=== PATIENT | male | born 1960 | race Caucasian/White ===

== ENCOUNTER 2018-07-21 09:46 | Emergency (ER) | payer BC, OTHER ==
[~2018-07-21] VITALS: Wt 70.0 kg
[~2018-07-21 09:46] MED LIST: NO MEDS
[2018-07-21] MEDS ORDERED: SOD CHLORIDE 0.9% 1,000 ML IV STA (10:02)
[2018-07-21] MEDS ORDERED: HYDROmorphONE 1 MG/ML SYG IV STA (10:02)
[2018-07-21] MEDS ORDERED: ONDANSETRON 4 MG INJ IV STA (10:02)
--- NOTE | 2018-07-21 10:12 | ERD ---
ER Documentation Chief Complaint Chief Complaint RIGHT FLANK PAIN ONSET 0600 TODAY HPI This is a 57-year-old male with a history of kidney stones in the past complains of sharp onset right flank pain about an hour prior to arrival with nausea with no vomiting no hematuria or dysuria. Pain is sharp radiates around the right flank to the right lower quadrant. No fever ROS All systems reviewed and are negative except as per history of present illness. Medications Home Meds Discontinued Reported Medications [No Meds] No Conflict Check 05/25/09 Allergies Allergies: Coded Allergies: No Known Allergies (Verified Allergy, Mild, 07/21/18) PMhx/Soc History of Surgery: No Anesthesia Reaction: No Hx Neurological Disorder: No Hx Respiratory Disorders: No Hx Cardiac Disorders: No Hx Psychiatric Problems: No Hx Miscellaneous Medical Probl: Yes (STRAINED LOWER BACK) Hx Alcohol Use: Yes (SOCIALLY ) Hx Substance Use: No Hx Tobacco Use: No FmHx Family History: No coronary disease Physical Exam Vitals Vital Signs Date Temp Pulse Resp B/P (MAP) Pulse Ox O2 O2 Flow FiO2 Time Delivery Rate 07/21/18 97.7 51 18 152/67 99 Room Air 10:35 (95) 07/21/18 97.7 57 18 152/67 99 09:48 (95) Physical Exam Const: Well-developed, well-nourished Head: Atraumatic, normocephalic Eyes: Normal Conjunctiva, PERRLA, EOMI, normal sclera, no nystagmus ENT: Normal External Ears, Nose and Mouth, moist mucus membranes. Neck: Full range of motion. No meningismus, no lymphadenopathy. Resp: Clear to auscultation bilaterally, no wheezing, rhonchi, rales Cardio: Regular rate and rhythm, no murmurs, S1 S2 present Abd: Soft, non tender x 4, non distended. Normal bowel sounds, no guarding or rebound, no pulsitile abdominal masses or bruits Skin: No petechiae or rashes, no ecchymosis , no maculopapular rash Back: Right flank tenderness Ext: No cyanosis, or edema, FROM x 4, normal inspection, neurovascularly intact x 4 Neur: Awake and alert, STR 5/5 x 4, sensation intact x 4, no focal findings, cerebellum intact Psych: Normal Mood and Affect Result Diagram: 07/21/18 1013 07/21/18 1013 Results 24 hrs Laboratory Tests Test 07/21/18 10:13 White Blood Count 12.3 10^3/ul Red Blood Count 5.12 10^6/ul Hemoglobin 15.5 g/dl Hematocrit 45.8 % Mean Corpuscular Volume 89.5 fl Mean Corpuscular Hemoglobin 30.3 pg Mean Corpuscular Hemoglobin Concent 33.8 g/dl Red Cell Distribution Width 13.0 % Platelet Count 332 10^3/UL Mean Platelet Volume 9.1 fl Immature Granulocytes % 0.400 % Neutrophils % 76.9 % Lymphocytes % 16.7 % Monocytes % 4.8 % Eosinophils % 0.6 % Basophils % 0.6 % Nucleated Red Blood Cells % 0.0 /100WBC Immature Granulocytes # 0.050 10^3/ul Neutrophils # 9.5 10^3/ul Lymphocytes # 2.1 10^3/ul Monocytes # 0.6 10^3/ul Eosinophils # 0.1 10^3/ul Basophils # 0.1 10^3/ul Nucleated Red Blood Cells # 0.0 10^3/ul Urine Color YELLOW Urine Clarity SLIGHTLY CLOUDY Urine pH 5.0 Urine Specific [place] 1.023 Urine Ketones TRACE mg/dL Urine Nitrite NEGATIVE mg/dL Urine Bilirubin NEGATIVE mg/dL Urine Urobilinogen 1+ mg/dL Urine Leukocyte Esterase NEGATIVE Tanner/ul Urine Microscopic RBC > 182 /HPF Urine Microscopic WBC 11 /HPF Urine Mucus FEW /HPF Urine Hemoglobin 3+ mg/dL Urine Glucose NEGATIVE mg/dL Urine Total Protein NEGATIVE mg/dl Sodium Level 140 mmol/L Potassium Level 3.8 mmol/L Chloride Level 106 mmol/L Carbon Dioxide Level 24 mmol/L Anion Gap 10 Blood Urea Nitrogen 12 mg/dl Creatinine 1.20 mg/dl Est Glomerular Filtrat Rate mL/min > 60 mL/min Glucose Level 154 mg/dl Calcium Level 9.8 mg/dl Current Medications Medications Dose Sig/Von Start Time Status Last (Trade) Ordered Route PRN Stop Time Admin Dose Reason Admin Sodium 1,000 ml @ Q1H STAT 07/21/18 DC 07/21/18 Chloride 1,000 mls/hr IV 10:02 10:09 07/21/18 11:01 1 mg ONCE STAT 07/21/18 DC 07/21/18 Hydromorphone IV 10:02 10:08 HCl 07/21/18 10:03 (Dilaudid) Ondansetron 4 mg ONCE STAT 07/21/18 DC 07/21/18 HCl (Zofran IV 10:02 10:07 Inj) 07/21/18 10:03 Procedures/[place] [id number] Radiology Main Line: [phone] DIAGNOSTIC IMAGING REPORT Patient: CHRISTIANO PORTER : 1960 Age: 57 Sex: M MR #: [id number] DOS: 07/21/18 1002 Ordering MD: JEFFREY HDZ DO Location: E/R Room/Bed: PROCEDURE: CT Abdomen and Pelvis without contrast. CLINICAL INDICATION: Abdominal pain. TECHNIQUE: CT scan of the abdomen and pelvis without contrast was performed on a multidetector high-resolution CT scanner. The patient was scanned without intravenous contrast. Coronal and sagittal reformatted images were obtained from the axial source images. Images were reviewed on a high-resolution PACS workstation. One or more of the following dose reduction techniques were used: Automated exposure control, adjustment of the mA and/or kV according to patient size, use of iterative reconstruction technique. DICOM images are available. The total exam CTDI equals 10.23 mGy and the total exam DLP equals 596.69 mGy- cm. COMPARISON: None available. FINDINGS: CT ABDOMEN: Visualized lung bases: No significant infiltrate or pleural/pericardial effusion. The heart size is normal. Liver: Hypodense lesions are present in the right hepatic lobe measuring up to 9 mm in diameter, too small to characterize. The liver is normal in size and demonstrates normal attenuation. No evidence of intrahepatic ductal dilatation. Gallbladder and bile ducts: Unremarkable. Spleen: Unremarkable. Pancreas: Unremarkable. No ductal dilatation, mass, or peripancreatic stranding. Adrenal glands: Unremarkable. Kidneys: There is a 3 mm obstructive calculus in the proximal right ureter resul ting in mild right-sided hydronephrosis. Mild right perinephric and periureteral fat stranding is likely reactive in nature. There is an exophytic 3.9 cm cyst at the interpolar aspect of the right kidney. Vasculature: No abdominal aortic aneurysm. Negative IVC. Lymph nodes: No adenopathy. GI: There is no evidence of inflamed appendix. Negative terminal ileum and rectum. No evidence of obstruction. Negative sigmoid colon. Peritoneal cavity: There is a small fat-containing umbilical hernia. No free fluid or free air. CT PELVIS: : Normal appearing bladder, distal ureters and ureterovesiculal junctions. The pelvic organs are unremarkable. Peritoneal cavity: There is a small fat-containing umbilical hernia. No free fluid or free air. Lymph nodes: No adenopathy. Osseous structures: No acute osseous injury. No lytic or blastic lesions. Other: None. IMPRESSION: 1. 3 mm obstructive calculus in the proximal right ureter resulting in mild right-sided hydronephrosis likely reactive right perinephric fat stranding. No evidence of additional renal or ureteral calculi. 2. Simple appearing hypodense 3.9 cm right renal lesion, likely representing a simple cyst. 3. Indeterminate 9 mm hypodense right hepatic lobe lesion, likely representing a cyst but too small to completely characterize on this noncontrast exam. RPTAT: JJ .Leonid Pratt MD, MD Date Time Electronically viewed and signed by .Leonid Pratt MD, MD on 07/21/2018 11:40 .A/ CC: JEFFREY HDZ DO [id number] Patient's pain is better he has a 3 mm stone. Will treat with pain meds Flomax and he was given warning signs to return Departure Diagnosis: Primary Impression: Ureterolithiasis Additional Impression: Flank pain Condition: Stable JEFFREY HDZ DO July 21, 2018 10:12
[2018-07-21] MEDS ORDERED: TAMS-14 PO (11:57)
[2018-07-21] MEDS ORDERED: HYDR-3980 PO (11:57)
[2018-07-21] MEDS ORDERED: CIPR500T4 PO (11:57)
[2018-07-21 13:20] VITALS: BP 132/63; PULSE 63; RESP 18
== END 2018-07-21 13:21 | disposition home or self-care (01) ==
LOC: E/R 09:46
DX: N20.1 Calculus of ureter (principal)
CPT/HCPCS: 36415; 74176; 80048; 81001; 85025; 96374; 96375; 99285; J1170; J2405; J7030

== ENCOUNTER 2018-07-24 04:21 | Emergency (ER) | payer BC ==
[~2018-07-24] VITALS: Wt 73.6 kg
[~2018-07-24 04:21] MED LIST changes: +CIPR500T4 PO; +HYDR-3980 PO; -NO MEDS; +TAMS-14 PO
[2018-07-24] MEDS ORDERED: morphine 4 MG/ML VIAL IV STA (05:23)
[2018-07-24] MEDS ORDERED: KETOROLAC 30 MG INJ IV STA (05:23)
[2018-07-24] MEDS ORDERED: ONDANSETRON 4 MG INJ IV STA ×2 (05:26→06:54)
[2018-07-24] MEDS ORDERED: SOD CHLORIDE 0.9% 1,000 ML IV ONE (05:30)
--- NOTE | 2018-07-24 05:30 | ERD ---
ER Documentation Chief Complaint Chief Complaint SEEN HERE FOR VOMITING LAST ; MEDS NOT HELPING HPI This is a 57-year-old male who presents here in the emergency department with complaints of right-sided flank pain, nausea and vomiting. Stated that he was here last Friday and was diagnosed with right-sided kidney stones. Stated that the medication that was prescribed to him is not working. Denies headache, head injury, loss of consciousness, dizziness, neck pain, neck stiffness, throat pain, difficulty swallowing, difficulty breathing lying flat, shoulder pain, chest pain, abdominal pain, constipation, diarrhea, urinary symptoms, loss of bowel and bladder control, trauma, injury, falls, difficulty walking due to pain, numbness or tingling sensation, calf pain, recent travel, recent major surgery in the last 3 weeks, calf pain, recent long travel, recent exposure to any illness, recent antibiotic use in the last 3 months, fever, chills, seizures. Past medical history: Surgical history: Social: Denies smoking, use of alcoholic beverages, use of illegal drugs. ROS All systems reviewed and are negative except as per history of present illness. Medications Home Meds Active Scripts Ondansetron Hcl* (Zofran*) 4 Mg Tablet, 4 MG PO Q8H PRN for NAUSEA AND/OR VOMITING, #30 TAB Prov:BRIANNA NARVAEZ 07/24/18 Acetaminophen* (Tylophen*) 500 Mg Capsule, 1 CAP PO Q6H PRN for PAIN AND OR ELEVATED TEMP, #20 CAP Prov:BRIANNA NARVAEZ 07/24/18 Tramadol HCl (Tramadol HCl) 50 Mg Tablet, 50 MG PO Q4 PRN for SEVERE PAIN LEVEL 7-10, #7 TAB Prov:BRIANNA NARVAEZ 07/24/18 Hydrocodone/Acetaminophen ([place] 10-325 Tablet) 1 Each Tablet, 1 TAB PO Q6H PRN for PAIN, #16 TAB Prov:JEFFREY HDZ DO 07/21/18 Ciprofloxacin Hcl* (Ciprofloxacin Hcl*) 500 Mg Tablet, 500 MG PO BID for 7 Days, TAB Prov:ZULEYMA HDZS Benjamin LEBRON 07/21/18 Tamsulosin Hcl* (Flomax*) 0.4 Mg Cap.er.24h, 0.4 MG PO QPM, #7 CAP Prov:JEFFREY HDZ DO 07/21/18 Discontinued Reported Medications [No Meds] No Conflict Check 05/25/09 Allergies Allergies: Coded Allergies: No Known Allergies (Verified Allergy, Mild, 07/21/18) PMhx/Soc History of Surgery: Yes (Shoulder) Anesthesia Reaction: No Hx Neurological Disorder: No Hx Respiratory Disorders: No Hx Cardiac Disorders: No Hx Psychiatric Problems: No Hx Miscellaneous Medical Probl: Yes (STRAINED LOWER BACK) Hx Alcohol Use: Yes (SOCIALLY ) Hx Substance Use: No Hx Tobacco Use: No Smoking Status: Never smoker Physical Exam Vitals Vital Signs Date Temp Pulse Resp B/P (MAP) Pulse Ox O2 O2 Flow FiO2 Time Delivery Rate 07/24/18 98.7 65 16 121/75 99 Room Air 06:50 (90) 07/24/18 97.3 63 18 163/74 98 04:26 (103) Physical Exam Const: No acute distress Head: Atraumatic Eyes: Normal Conjunctiva ENT: Normal External Ears, Nose and Mouth. Neck: Full range of motion. No meningismus. Resp: Clear to auscultation bilaterally Cardio: Regular rate and rhythm, no murmurs Abd: Soft, non tender, non distended. Normal bowel sounds. Negative [place] sign. Negative [place] sign (heel jar test). Negative psoas sign. Negative Rov[place] sign. Has right-sided CVA tenderness. There is no left-sided CVA tenderness. Skin: No petechiae or rashes. No vesicular lesions. Back: No midline or flank tenderness Ext: No cyanosis, or edema Neur: Awake and alert. No neurological deficits. Psych: Normal Mood and Affect Result Diagram: 07/24/18 0530 07/24/18 0530 Results 24 hrs Laboratory Tests Test 07/24/18 05:30 White Blood Count 13.5 10^3/ul Red Blood Count 4.63 10^6/ul Hemoglobin 14.1 g/dl Hematocrit 41.7 % Mean Corpuscular Volume 90.1 fl Mean Corpuscular Hemoglobin 30.5 pg Mean Corpuscular Hemoglobin Concent 33.8 g/dl Red Cell Distribution Width 13.0 % Platelet Count 255 10^3/UL Mean Platelet Volume 9.2 fl Immature Granulocytes % 0.200 % Neutrophils % 84.6 % Lymphocytes % 6.8 % Monocytes % 7.9 % Eosinophils % 0.4 % Basophils % 0.1 % Nucleated Red Blood Cells % 0.0 /100WBC Immature Granulocytes # 0.030 10^3/ul Neutrophils # 11.4 10^3/ul Lymphocytes # 0.9 10^3/ul Monocytes # 1.1 10^3/ul Eosinophils # 0.1 10^3/ul Basophils # 0.0 10^3/ul Nucleated Red Blood Cells # 0.0 10^3/ul Urine Color YELLOW Urine Clarity CLEAR Urine pH 5.0 Urine Specific [place] 1.023 Urine Ketones NEGATIVE mg/dL Urine Nitrite NEGATIVE mg/dL Urine Bilirubin NEGATIVE mg/dL Urine Urobilinogen NEGATIVE mg/dL Urine Leukocyte Esterase NEGATIVE Tanner/ul Urine Microscopic RBC 7 /HPF Urine Microscopic WBC 1 /HPF Urine Hemoglobin 2+ mg/dL Urine Glucose NEGATIVE mg/dL Urine Total Protein NEGATIVE mg/dl Sodium Level 138 mmol/L Potassium Level 4.7 mmol/L Chloride Level 104 mmol/L Carbon Dioxide Level 27 mmol/L Anion Gap 7 Blood Urea Nitrogen 18 mg/dl Creatinine 1.78 mg/dl Est Glomerular Filtrat Rate mL/min 40 mL/min Glucose Level 119 mg/dl Calcium Level 9.1 mg/dl Total Bilirubin 2.0 mg/dl Direct Bilirubin 0.00 mg/dl Indirect Bilirubin 2.0 mg/dl Aspartate Amino Transf (AST/SGOT) 25 IU/L Alanine Aminotransferase (ALT/SGPT) 28 IU/L Alkaline Phosphatase 83 IU/L Total Protein 7.1 g/dl Albumin 3.8 g/dl Globulin 3.30 g/dl Albumin/Globulin Ratio 1.15 Amylase Level 74 U/L Lipase 40 U/L Current Medications Medications Dose Sig/Von Start Time Status Last (Trade) Ordered Route PRN Stop Time Admin Dose Reason Admin Sodium 1,000 ml @ Q1H ONCE 07/24/18 DC 07/24/18 Chloride 1,000 mls/hr IV 05:30 05:45 07/24/18 06:29 Ketorolac 30 mg ONCE STAT 07/24/18 DC Tromethamine IV 05:23 (Toradol) 07/24/18 05:26 Morphine 4 mg ONCE STAT 07/24/18 DC 07/24/18 Sulfate IV 05:23 05:44 (morphine) 07/24/18 05:26 Ondansetron 4 mg ONCE STAT 07/24/18 DC 07/24/18 HCl (Zofran IV 05:26 05:44 Inj) 07/24/18 05:27 1 mg ONCE STAT 07/24/18 DC 07/24/18 Hydromorphone IV 06:54 07:14 HCl 07/24/18 06:56 (Dilaudid) Ondansetron 4 mg ONCE STAT 07/24/18 DC 07/24/18 HCl (Zofran IV 06:54 07:14 Inj) 07/24/18 06:56 Procedures/MDM This case was discussed with my supervising physician, Dr.David Dubois who agreed with my medical decision making. Diagnostic tests: Urinalysis: Reviewed. Culture urine: Sent. KUB/x-ray of the abdomen: Blood works: Reviewed. Treatment: Saline lock. Normal saline IV bolus. Morphine IV. Zofran IV. To radol IV. Re-evaluation: Denies pain. No episode of emesis here in the emergency department. Differential diagnosis I have low suspicion for obstructing kidney stone, sepsis, septic stone, bowel obstruction, pancreatitis, cholecystitis, diverticulitis, appendicitis, ruptured appendicitis, AAA. Case was discussed with my supervising physician, Dr. Hdz. Final diagnosis: Kidney stone. Prescription: Zofran. Tylenol. Tramadol. Follow-up with PCP in the next 24-48 hours. Follow-up with urologist in the next 24 to 48 hours. Come back here in the emergency department for any new symptoms or any worsening symptoms. All questions and concerns were answered. Patient and family members verbalized understanding and agreed with plan of care. Hemodynamically stable on discharge. Departure Diagnosis: Primary Impression: Kidney stone Condition: Stable Additional Instructions: Follow-up with PCP in the next 24-48 hours. Follow-up with urologist in the next 24 to 48 hours. Come back here in the emergency department for any new symptoms or any worsening symptoms. BRIANNA NARVAEZ July 24, 2018 05:30
[2018-07-24] MEDS ORDERED: ONDA4TAB8 PO (06:32)
[2018-07-24] MEDS ORDERED: ACET500C5 PO (06:32)
[2018-07-24] MEDS ORDERED: TRAM50TA2 PO (06:32)
[2018-07-24 06:50] VITALS: BP 121/75; PULSE 65; RESP 16
[2018-07-24] MEDS ORDERED: HYDROmorphONE 2 MG/ML SYG IV STA (06:54)
== END 2018-07-24 07:35 | disposition home or self-care (01) ==
LOC: FTE 04:21
DX: N20.0 Calculus of kidney (principal)
CPT/HCPCS: 74018; 80053; 81001; 82150; 83690; 85025; 87086; J1170; J2270; J2405; J7030; 96361; 96374; 96375; 96376

== ENCOUNTER 2018-07-26 14:26 | Emergency (ER) | payer BC ==
[~2018-07-26] VITALS: Wt 73.4 kg
[~2018-07-26 14:26] MED LIST changes: +ACET500C5 PO; +ONDA4TAB8 PO; +TRAM50TA2 PO
[2018-07-26] MEDS ORDERED: ONDANSETRON 4 MG INJ IV STA (14:56)
[2018-07-26] MEDS ORDERED: KETOROLAC 15 MG INJ IV STA (14:56)
[2018-07-26] MEDS ORDERED: SOD CHLORIDE 0.9% 1,000 ML IV STA (14:56)
[2018-07-26] MEDS ORDERED: morphine 4 MG/ML VIAL IV STA (14:56)
--- NOTE | 2018-07-26 15:39 | ERD ---
ER Documentation Chief Complaint Chief Complaint HERE 05.17 W/ SAME RIGHT FLANK PAIN, HX KIDNEY STONE HPI This is a 58-year-old gentleman who presents to the emergency room with persistent right flank pain. The patient is now here for the third time related to the symptoms. On the first visit he was diagnosed with a proximal 3 mm right ureteral stone. Patient was discharged with pain medication. He was seen here 2 days ago for similar symptoms treated with pain control medication. He states that the pain is still persistent. He is taking pain medication at home. He denies any fevers or chills, no dysuria urgency or frequency. He has not followed up with urology as of yet. Pain noted to be 7 out of 10 currently. ROS All systems reviewed and are negative except as per history of present illness. Medications Home Meds Active Scripts Naloxone HCl nasal spray (Narcan 4 mg/0.1 mL nasal) 4 Mg [place], 4 MG NS .Q2-3MIN for OPIOID OVERDOSE, #2 SPRAY 0 Refills [place] 0.1 mL into one nostril. Repeat with second device into other nostril after 2-3 minutes if no or minimal response Prov:LUIS MUELLER MD 07/26/18 Tamsulosin Hcl* (Flomax*) 0.4 Mg Cap.er.24h, 0.4 MG PO QPM, #5 CAP Prov:LUIS MUELLER MD 07/26/18 Ibuprofen* (Motrin*) 800 Mg Tab, 800 MG PO Q6H PRN for PAIN AND OR ELEVATED TEMP, #30 TAB Prov:LUIS MUELLER MD 07/26/18 Ondansetron (Ondansetron Odt) 4 Mg Tab.rapdis, 4 MG PO Q6H PRN for NAUSEA AND/OR VOMITING, #20 TAB Prov:LUIS MUELLER MD 07/26/18 Hydrocodone/Acetaminophen ([place] 10-325 Tablet) 1 Each Tablet, 1 TAB PO Q6H PRN for PAIN, #10 TAB Prov:LUIS MUELLER MD 07/26/18 Ondansetron Hcl* (Zofran*) 4 Mg Tablet, 4 MG PO Q8H PRN for NAUSEA AND/OR VOMITING, #30 TAB Prov:BRIANNA NARVAEZ 07/24/18 Acetaminophen* (Tylophen*) 500 Mg Capsule, 1 CAP PO Q6H PRN for PAIN AND OR ELEVATED TEMP, #20 CAP Prov:BRIANNA NARVAEZ 07/24/18 Tramadol HCl (Tramadol HCl) 50 Mg Tablet, 50 MG PO Q4 PRN for SEVERE PAIN LEVEL 7-10, #7 TAB Prov:BRIANNA NARVAEZ 07/24/18 Hydrocodone/Acetaminophen ([place] 10-325 Tablet) 1 Each Tablet, 1 TAB PO Q6H PRN for PAIN, #16 TAB Prov:ANDREINAJEFFREY NavarreteRosina DO 07/21/18 Ciprofloxacin Hcl* (Ciprofloxacin Hcl*) 500 Mg Tablet, 500 MG PO BID for 7 Days, TAB Prov:RIMMACONRADOTAMIKAHUANDREA LandonRosina DO 07/21/18 Tamsulosin Hcl* (Flomax*) 0.4 Mg Cap.er.24h, 0.4 MG PO QPM, #7 CAP Prov:RIMMACONRADOTAMIKAHUANDREA LandonRosina DO 07/21/18 Discontinued Reported Medications [No Meds] No Conflict Check 05/25/09 Allergies Allergies: Coded Allergies: No Known Allergies (Verified Allergy, Mild, 07/26/18) PMhx/Soc History of Surgery: Yes (Shoulder) Anesthesia Reaction: No Hx Neurological Disorder: No Hx Respiratory Disorders: No Hx Cardiac Disorders: No Hx Psychiatric Problems: No Hx Miscellaneous Medical Probl: Yes (STRAINED LOWER BACK) Hx Alcohol Use: Yes (SOCIALLY ) Hx Substance Use: No Hx Tobacco Use: No Smoking Status: Never smoker Physical Exam Vitals Vital Signs Date Temp Pulse Resp B/P (MAP) Pulse Ox O2 O2 Flow FiO2 Time Delivery Rate 07/26/18 97.9 67 18 133/90 99 14:29 (104) Physical Exam General: Well developed, well nourished, no acute distress Head: Normocephalic, atraumatic. Eyes: Pupils equally reactive, EOM intact ENT: Moist mucous membranes Neck: Supple, no lymphadenopathy Respiratory: Lungs clear bilaterally, no distress Cardiovascular: RRR, no murmurs, rubs, or gallops Abdominal: Soft, non-tender, non-distended, no peritoneal signs : Deferred MSK: No edema, no unilateral swelling, 5/5 strength Neurologic: Alert and oriented, moving all extremities, normal speech, no focal weakness, no cerebellar signs Skin: No rash Psych: Normal mood Result Diagram: 07/26/18 1508 07/26/18 1508 Results 24 hrs Laboratory Tests Test 07/26/18 15:08 White Blood Count 9.9 10^3/ul Red Blood Count 4.50 10^6/ul Hemoglobin 13.7 g/dl Hematocrit 41.0 % Mean Corpuscular Volume 91.1 fl Mean Corpuscular Hemoglobin 30.4 pg Mean Corpuscular Hemoglobin Concent 33.4 g/dl Red Cell Distribution Width 12.6 % Platelet Count 252 10^3/UL Mean Platelet Volume 9.5 fl Immature Granulocytes % 0.300 % Neutrophils % 77.1 % Lymphocytes % 13.0 % Monocytes % 8.3 % Eosinophils % 1.0 % Basophils % 0.3 % Nucleated Red Blood Cells % 0.0 /100WBC Immature Granulocytes # 0.030 10^3/ul Neutrophils # 7.6 10^3/ul Lymphocytes # 1.3 10^3/ul Monocytes # 0.8 10^3/ul Eosinophils # 0.1 10^3/ul Basophils # 0.0 10^3/ul Nucleated Red Blood Cells # 0.0 10^3/ul Urine Color YELLOW Urine Clarity CLEAR Urine pH 6.0 Urine Specific [place] 1.010 Urine Ketones TRACE mg/dL Urine Nitrite NEGATIVE mg/dL Urine Bilirubin NEGATIVE mg/dL Urine Urobilinogen NEGATIVE mg/dL Urine Leukocyte Esterase NEGATIVE [place]/ul Urine Hemoglobin NEGATIVE mg/dL Urine Glucose NEGATIVE mg/dL Urine Total Protein NEGATIVE mg/dl Sodium Level 136 mmol/L Potassium Level 4.3 mmol/L Chloride Level 100 mmol/L Carbon Dioxide Level 29 mmol/L Anion Gap 7 Blood Urea Nitrogen 17 mg/dl Creatinine 1.89 mg/dl Est Glomerular Filtrat Rate mL/min 37 mL/min Glucose Level 96 mg/dl Calcium Level 9.1 mg/dl Current Medications Medications Dose Sig/Von Start Time Status Last (Trade) Ordered Route PRN Stop Time Admin Dose Reason Admin Sodium 1,000 ml @ Q1H STAT 07/26/18 07/26/18 Chloride 1,000 mls/hr IV 14:56 15:15 07/26/18 15:55 Morphine 4 mg ONCE STAT 07/26/18 DC 07/26/18 Sulfate IV 14:56 15:15 (morphine) 07/26/18 14:58 Ondansetron 4 mg ONCE STAT 07/26/18 DC 07/26/18 HCl (Zofran IV 14:56 15:15 Inj) 07/26/18 14:58 Ketorolac 15 mg ONCE STAT 07/26/18 DC 07/26/18 Tromethamine IV 14:56 15:15 (Toradol) 07/26/18 14:58 Procedures/MDM LAB INTERPRETATION: I reviewed the laboratory testing and it shows slight creatinine elevation but consistent with prior MEDICAL DECISION MAKING: The patient has flank pain that is very consistent with persistent renal colic. The patient is a 3 mm stone that has a very good chance of passing on its own. Since initial diagnosis was on the . Patient has only 5 days of symptoms. It would be common to expect symptoms for approximately 7 days therefore this is still within the realm of normal disease process. Patient exhibits no signs or symptoms concerning for renal failure, infectious process. I discussed the case with Dr. Live. He feels that if the pain is well controlled the patient should be discharged with outpatient follow-up as there is no clear indication for lithotripsy or ureteral stent at this time. I believe the patient has a misunderstanding as to the expectant management in process of this disease process. I had a in-depth conversation discussing expectant management and signs and symptoms needed for return. ER COURSE: * Patient is now asymptomatic after pain control medication. At this point the patient can be safely discharged home with outpatient follow-up with urologist as discussed above. * Return precautions were discussed and understood CONSULTATION: None DISPOSITION PLAN: The patient does not have an identifiable emergent medical condition that warrants inpatient hospitalization at this time. The patient is deemed safe for discharge with outpatient follow-up. We discussed follow up with the patient's primary care doctor within 24 to 48 hours as needed. We also discussed return to the emergency room for worsening symptoms or worsening condition. Outpatient referral: Urology Discharge Medications: [place], Zofran, Motrin, Flomax NARCOTIC MEDICATION: The patient has been prescribed a narcotic medication during this encounter. The patient has been warned about the use of narcotics. The patient should not drive or operate heavy machinery while taking this medication. The patient was also warned about the addictive properties of narcotic medications. Narcan prescription WAS provided given one of the following criteria were met: 1. More than 5 tablets of [place] 10 mg or 10 tablets of [place] 5 mg were prescribed. 2. Concomitant opiate and benzodiazepine prescriptions were provided. 3. There is evidence of prior history of opiate abuse or overdose. Departure Diagnosis: Primary Impression: Ureteral colic Additional Impression: Flank pain Condition: Stable LUIS MUELLER MD July 26, 2018 15:39
[2018-07-26] MEDS ORDERED: TAMS-14 PO (15:47)
[2018-07-26] MEDS ORDERED: HYDR-3980 PO (15:47)
[2018-07-26] MEDS ORDERED: IBUP800T48 PO (15:47)
[2018-07-26] MEDS ORDERED: ONDA4TAB14 PO (15:47)
[2018-07-26] MEDS ORDERED: NALO4SPR NS (15:48)
[2018-07-26 16:41] VITALS: BP 126/77; PULSE 74; RESP 18
== END 2018-07-26 16:42 | disposition home or self-care (01) ==
LOC: E/R 14:26
DX: N36.8 Other specified disorders of urethra (principal)
CPT/HCPCS: 36415; 80048; 81003; 85025; 87086; 96374; 96375; 99284; J1885; J2270; J2405; J7030